=== PATIENT | male | born 1945 | race Caucasian/White ===

== ENCOUNTER → 2019-01-18 08:40 | Outpatient (CLI) | payer MEDICARE ==
[2011-06-24 08:11] VITALS: BMI 28.8
== END | disposition home or self-care (01) ==
LOC: D.HCCECHO 08:30 → D.HCCARDIO 08:30 → D.HCCECHO 08:40
PROVIDERS: ATTEND Internal Medicine Cardiovascular Disease
DX: I34.0 Nonrheumatic mitral (valve) insufficiency (principal)